=== PATIENT | female | born 1980 | race Caucasian/White ===

== ENCOUNTER 2016-04-14 17:20 | Emergency (ER) | payer MEDICAID ==
[2016-04-14 19:59] VITALS: BP 122/57; PULSE 68; TEMP 97.8; BMI 21.1
--- NOTE | 2016-04-14 20:16 | EDPRACDOC ---
- General Information Chief Complaint: Hand Pain Stated Complaint: NUMB TINGLING BILATERAL FINGERS Time Seen by Provider: 04/14/16 20:06 Information Source: Patient Mode of Arrival: Car Home Medications: Home Medications Hydrocodone Bit/Acetaminophen [Hydrocodon-Acetaminophen 5-325] 1 tab PO Q6 PRN # 20 tab 04/14/16 Prednisone [Deltasone, Orasone] 40 mg PO DAILY 5 Days 04/14/16 Allergies/Adverse Reactions: Allergies Allergy/AdvReac Type Severity Reaction Status Date / Time naproxen Allergy Nausea/Vomi Verified 04/14/16 20:05 ting - History of Present Illness Onset: several days HPI: PT COMPLAINS OF PAIN, NUMBNESS AND TINGLING TO BILATERAL HANDS, TINGLING TO 1ST 3 FINGERS, PAIN WORSE AT NIGHT, 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 Location: Reports: Right, Left, Hand Dominant Hand: Right Mechanism: Reports: Spontaneous Circumstances: Reports: Unknown Associated Signs & Symptoms: Reports: Numbness, Weakness, Hand Pain. Denies: Wrist Pain, Forearm Pain, Elbow Pain ED Past Medical History - History Reviewed Yes Nurses notes reviewed and agree except as marked No Past Medical History: Yes Patient has no past medical history - Patient Medical History Psychological History: Denies: Depression Surgical History: Reports: Hysterectomy - Social Medical History Smoking Status: Never smoker EDM Review of Systems - Review of Systems Constitutional: negative: Chills, Fever Genitourinary: negative: Dysuria, Frequency Neurological: Numbness, Weakness. negative: Dizziness, Headache Musculoskeletal: Hand Integumentary: No Symptoms Reported - Physical Exam Constitutional: Alert (Awake), No apparent distress Oriented to: Time, Person, Place Last recorded Vital Signs: Last Vital Signs Temp 97.8 F 04/14/16 19:59 Pulse 68 04/14/16 19:59 Resp 18 04/14/16 19:59 BP 122/57 L 04/14/16 19:59 Pulse Ox 99 04/14/16 19:59 Oxygen Pulse Oxygen Saturation 99 O2 Device Room Air Oxygen Flow Rate Fraction of Inspired Oxygen ( FIO2) - HEENT Head: Normal ( normocephalic) - Integumentary Skin: Normal, Warm, Dry Lymphatics: Normal (no adenopathy) - Neurologic Memory Impaired: Normal Motor Function: Normal (Normal tone, Pulses 2+ No cyanosis or edema, FROM) Cranial Nerve: Normal (CN II-X11 intact sensation, strength 5/5) Cerebellar: Normal Mood Description: Normal Perception: Normal ED Hand Problem Physical Exam - Musculoskeletal Hand: Other (+ TINEL'S SIGN BILATERALLY). negative: Swelling, Deformity, Limited ROM Wrist: Normal Digit: Normal Digit Strength: Normal Nail: Normal Nailbed: Normal Soft Tissue: Normal Distal Function/Circulation: Normal, Capillary Refill. negative: Motor Deficit , Pulse Deficit, Sensory Deficit - Integumentary Skin: Normal - Differential Diagnosis DJD Arthritis, Other (CARPAL TUNNEL SYNDROME) Decision Time to Discharge: 20:16 - Departure Disposition: Home Condition: Stable Final Diagnosis: Bilateral carpal tunnel syndrome Instructions: Carpal Tunnel Syndrome Exercises (GEN), Carpal Tunnel Syndrome ( ED) Education/Counseling Given To: Patient Education/Counseling Given Regarding: Diagnosis, Treatment, Prognosis, Follow Up Referrals: None,No Provider [Primary Care Provider] - One Week Prescriptions: Hydrocodone Bit/Acetaminophen [Hydrocodon-Acetaminophen 5-325] 1 tab PO Q6 PRN # 20 tab PRN Reason: Pain Prednisone [Deltasone, Orasone] 40 mg PO DAILY 5 Days Additional Instructions: FOLLOW UP WITH YOUR DOCTOR NEXT WEEK, RETURN TO THE ED FOR ANY WORSENING SYMPTOMS OR CONCERNS.
== END 2016-04-14 20:33 | disposition home or self-care (01) ==
LOC: EDMC 17:20
DX: G56.03 Carpal tunnel syndrome, bilateral upper limbs (principal)
CPT/HCPCS: 99282